=== PATIENT | female | born 1965 | race Caucasian/White ===

== ENCOUNTER 2021-02-22 06:23 | Inpatient (IN) ==
[2021-02-22] MEDS ORDERED: NS 1,000 ML IV 1,000 ML ONE ×2 (06:43→09:32)
[2021-02-22] MEDS ORDERED: ANCEF 1 GRAM IV PREMIX* 2 G/100 ML BAG IV ONE (06:43)
[2021-02-22] MEDS ORDERED: MARCAINE 0.25% INJ ONE (07:01)
[2021-02-22 07:12] VITALS: BMI 44.8
[2021-02-22] MEDS ORDERED: BRIDION ONE (07:20)
[2021-02-22] MEDS ORDERED: FENTANYL VIAL INJ 100 mcg ONE (07:20)
[2021-02-22] MEDS ORDERED: NAROPIN 0.75% EPI ONE (07:21)
[2021-02-22] MEDS ORDERED: ZOFRAN INJ 4 MG VIAL ONE (07:43)
[2021-02-22] MEDS ORDERED: TORADOL 30 MG VIAL ONE (07:43)
[2021-02-22] MEDS ORDERED: NORCURON INJ 10 MG VIAL ONE (07:43)
[2021-02-22] MEDS ORDERED: XYLOCAINE 2 % (PLAIN) ONE (07:43)
[2021-02-22] MEDS ORDERED: DIPRIVAN VIAL ONE (07:43)
[2021-02-22] MEDS ORDERED: QUELICIN (OR ANECTINE) ONE (07:43)
[2021-02-22] MEDS ORDERED: SUPRANE ONE (07:43)
[2021-02-22] MEDS ORDERED: VERSED ONE (07:43)
[2021-02-22] MEDS ORDERED: BARHEMSYS INJ IVP PRN (09:36)
[2021-02-22] MEDS ORDERED: PHENERGAN INJ 25 MG IM PRN (09:36)
[2021-02-22] MEDS ORDERED: DILAUDID INJ IVP PRN (09:36)
[2021-02-22] MEDS ORDERED: ZOFRAN INJ 4 MG VIAL IVP PRN (09:36)
[2021-02-22] MEDS ORDERED: BENADRYL INJ 50 MG VIAL IVP PRN (09:36)
[2021-02-22] MEDS ORDERED: REGLAN INJ 10 MG VIAL IVP PRN (09:36)
[2021-02-22] MEDS ORDERED: TYLENOL 325 MG TAB PO PRN (10:07)
[2021-02-22] MEDS: LR 1,000 ML IV 1,000 ML IV SCH ×2 (11:29→20:26)
[2021-02-22] MEDS: ZOFRAN INJ 4 MG VIAL IVP PRN (11:46)
[2021-02-22] MEDS: LYRICA CAP 150 mg PO SCH ×2 (15:00→21:00)
[2021-02-22] MEDS: FLUVOXAMINE MALEATE PO SCH (15:00)
[2021-02-22] MEDS: DILAUDID INJ IVP PRN ×3 (15:20→23:11)
[2021-02-22] MEDS: SNACK - Diabetic Appropriate PO SCH (20:15)
[2021-02-22] MEDS: REMERON PO SCH (20:29)
[2021-02-22] MEDS: COLACE CAP 100 MG PO SCH (20:29)
[2021-02-22] MEDS: BUSPAR PO SCH (20:29)
[2021-02-22] MEDS: LANTUS SC SCH (21:12)
[2021-02-23] MEDS: PERCOCET TAB 5/325 MG PO PRN ×3 (01:59→22:56)
[2021-02-23] MEDS ORDERED: ZOFRAN INJ 4 MG VIAL ONE (02:57)
[2021-02-23] MEDS: DILAUDID INJ IVP PRN ×5 (03:00→22:04)
[2021-02-23] MEDS: ZOFRAN INJ 4 MG VIAL IVP PRN (03:01)
[2021-02-23] MEDS: LR 1,000 ML IV 1,000 ML IV SCH ×3 (04:59→22:52)
[2021-02-23] MEDS: LYRICA CAP 150 mg PO SCH ×3 (05:06→21:00)
[2021-02-23] MEDS: SYNTHROID 150 mcg TAB PO SCH (05:31)
[2021-02-23 06:37] LABS: BLOOD UREA NITROGEN 11 mg/dL (7-18); CALCIUM 7.8 mg/dL (8.5-10.1); CARBON DIOXIDE 28.2 mmol/L (21-32); CHLORIDE 107 mmol/L (98-107); COR NA(FOR HYPERGLY) 143 mmol/L (136-145); CREATININE 0.94 mg/dL (0.55-1.02); SODIUM 142 mmol/L (136-145); eGFR NON BLACK RACES > 60 (>60)
[2021-02-23] MEDS: BUSPAR PO SCH ×2 (08:09→20:35)
[2021-02-23] MEDS: FLUVOXAMINE MALEATE PO SCH (08:09)
[2021-02-23] MEDS: LOVENOX INJ 40 MG SYR SC SCH (09:13)
--- NOTE | 2021-02-23 10:44 | PCM.PROG ---
Progress Note Progress Note for Day of Date of Exam: 02/23/21 Subjective Subjective: Mrs. Liu is a 55 year old female who is s/p right foot surgery, DOS was 02/22. Patient is doing ok with pain of 8/10. She is currently taking 2 mg of Dilaudid and Oxycodone for pain. Her dressings are c/d/I. No strike through. She denies any f/c/n/v/sob/calf pain. Past Medical Family Social History Past Med/Fam/Surg Hx: No changes since H&P Allergies: Allergies No Known Drug Allergies Allergy (Verified 02/22/21 06:50) Review of Systems ROS: No change since H&P Vital Signs and I&O's Vital Signs: Temperature 98.6 F Pulse Rate [Bilateral Radial] 88 Pulse Rate 83 Respiratory Rate 22 Blood Pressure [Left Arm] 130/66 Blood Pressure 144/65 O2 Sat by Pulse Oximetry 95 Intake and Output: Intake & Output 02/20/21 02/21/21 02/22/21 02/23/21 23:59 23:59 23:59 23:59 Intake Total 3672 / 3672 1519 / 1519 Output Total 520 / 520 Balance 3152 / 3152 1519 / 1519 Physical Exam Oriented: Time, Person and Place Musculoskeletal: Leg (Right leg with the dressing clean, dry and intact. No strike through. Patient is able to move her toes x 5. She has sensation to light touch to all 5 digits. Cap fill is less than 3 seconds. ) Speech Pattern: Clear and Appropriate Laboratory and Diagnostics Result Diagrams: 02/23/21 05:26 02/23/21 05:26 Labs: Laboratory Sodium 142 mmol/L (136-145) 02/23/21 05:26 Corrected Sodium 143 mmol/L (136-145) 02/23/21 05:26 Potassium 4.0 mmol/L (3.5-5.1) 02/23/21 05:26 Chloride 107 mmol/L (98-107) 02/23/21 05:26 Carbon Dioxide 28.2 mmol/L (21-32) 02/23/21 05:26 BUN 11 mg/dL (7-18) 02/23/21 05:26 Creatinine 0.94 mg/dL (0.55-1.02) 12/09/21 05:26 Est GFR (MDRD) Af Amer > 60 (>60) 02/23/21 05:26 Est GFR (MDRD) Non-Af > 60 (>60) 02/23/21 05:26 Glucose 122 mg/dL (65-99) H 02/23/21 05:26 POC Glucose (mg/dL) 101 mg/dL (65-99) H 02/23/21 05:05 Calcium 7.8 mg/dL (8.5-10.1) L 02/23/21 05:26 Plan (1) Right foot pain: Status: Acute Plan: Assessment: Mrs. Lui is s/p right LE reconstructive surgery, DOS was 02/22. Dressing intact with no strike through. Pain is 8/10 and she is taking 2 mg Dilaudid. She is with VSS and NAD. Cr. is 0.94. Plan: She is to continue to elevate right LE x 2 pillows. Keep the dressing intact. First dressing change with be at her first follow up with Dr. Amin in clinic. NWB on the right LE. PT/OT evaluation, appreciate recs. Patient will benefit from rehab. She currently lives in an that has steps and will be very difficult for her. 30 mg of Toradol once for pain. Rx's in the chart. She is to follow up with Dr. Amin in one week Will monitor. Please do not hesitate to contact me with any questions or concerns. Martín Matos, [facility] [phone]
[2021-02-23] MEDS ORDERED: TORADOL 15 MG VIAL IM ONE (10:46)
[2021-02-23] MEDS: SNACK - Diabetic Appropriate PO SCH (20:00)
[2021-02-23] MEDS: COLACE CAP 100 MG PO SCH (20:35)
[2021-02-23] MEDS: RESTORIL CAP 15 MG PO PRN (20:35)
[2021-02-23] MEDS: REMERON PO SCH (20:35)
[2021-02-23] MEDS: LANTUS SC SCH (20:53)
[2021-02-24] MEDS: VISTARIL PO PRN ×3 (00:39→20:46)
[2021-02-24] MEDS: DILAUDID INJ IVP PRN ×5 (00:39→23:46)
[2021-02-24] MEDS: LR 1,000 ML IV 1,000 ML IV SCH ×4 (04:41→21:52)
[2021-02-24] MEDS: LYRICA CAP 150 mg PO SCH ×3 (05:02→21:00)
[2021-02-24] MEDS: SYNTHROID 150 mcg TAB PO SCH (05:32)
[2021-02-24 06:48] LABS: BASOPHILS % (AUTO) 0.7 % (0.2-1.0); EOSINOPHILS # (AUTO) 0.4 x10^3/uL (0.0-0.2); EOSINOPHILS % (AUTO) 5.7 % (0.9-2.9); HEMOGLOBIN 11.6 g/dL (12.0-16.0); LYMPHOCYTES # (AUTO) 1.5 X10^3/uL (1.3-2.9); LYMPHOCYTES % (AUTO) 23.2 % (21.0-51.0); MEAN CORPUSCULAR HEMOGLOBIN 28.1 pg (27.0-34.0); MEAN CORPUSCULAR HGB CONC 33.1 g/dL (33.0-35.0); MONOCYTES # (AUTO) 0.6 x10^3/uL (0.3-0.8); MONOCYTES % (AUTO) 8.8 % (0.0-13.0); NEUTROPHILS # (AUTO) 3.9 x10^3/uL (2.2-4.8); NEUTROPHILS % (AUTO) 61.6 % (42.0-75.0); PLATELET COUNT 208 X10^3/uL (150.0-450.0); RED BLOOD COUNT 4.11 X10^6/uL (3.5-5.4); RED CELL DISTRIBUTION WIDTH 14.3 % (11.6-16.5); WHITE BLOOD COUNT 6.4 X10^3/uL (3.6-10.0)
[2021-02-24] MEDS: BUSPAR PO SCH ×2 (08:09→20:46)
[2021-02-24] MEDS: FLUVOXAMINE MALEATE PO SCH (08:09)
[2021-02-24] MEDS: LOVENOX INJ 40 MG SYR SC SCH (08:11)
[2021-02-24] MEDS ORDERED: PATIENT'S HOME MEDICATION SC SCH (09:00)
[2021-02-24] MEDS: PERCOCET TAB 5/325 MG PO PRN ×2 (12:11→18:04)
--- NOTE | 2021-02-24 16:31 | PCM.PROG ---
Progress Note Progress Note for Day of Date of Exam: 02/24/21 Subjective Subjective: Mrs. Liu is a 55 year old female who is s/p right foot surgery, DOS was 02/22. Patient is doing much better today and the pain is better controlled. She rates the pain at 5/10 today. Her dressings are c/d/I. No strike through. Elevated x 2 pillows. She denies any f/c/n/v/sob/calf pain. Past Medical Family Social History Past Med/Fam/Surg Hx: No changes since H&P Allergies: Allergies No Known Drug Allergies Allergy (Verified 02/22/21 06:50) Review of Systems ROS: No change since H&P Vital Signs and I&O's Vital Signs: Temperature 98.4 F Pulse Rate [Bilateral Radial] 82 Pulse Rate 90 Respiratory Rate 20 Blood Pressure [Right Arm] 126/68 Blood Pressure [Left Arm] 112/59 Blood Pressure 144/65 O2 Sat by Pulse Oximetry 98 Intake and Output: Intake & Output 02/21/21 02/22/21 02/23/21 02/24/21 23:59 23:59 23:59 23:59 Intake Total 3672 / 3672 4646 / 4646 1959 Output Total 520 / 520 0 / 0 0 / 0 Balance 3152 / 3152 4646 / 4646 1959 Physical Exam Oriented: Time, Person and Place Musculoskeletal: Leg (Right leg with the dressing clean, dry and intact. No strike through. Patient is able to move her toes x 5. She has sensation to light touch to all 5 digits. Cap fill is less than 3 seconds. ) Speech Pattern: Clear and Appropriate Laboratory and Diagnostics Result Diagrams: 02/24/21 05:37 02/23/21 05:26 Labs: Laboratory WBC 6.4 X10^3/uL (3.6-10.0) 02/24/21 05:37 RBC 4.11 X10^6/uL (3.5-5.4) 02/24/21 05:37 Hgb 11.6 g/dL (12.0-16.0) L 02/24/21 05:37 Hct 35.0 % (36.0-47.0) L 02/24/21 05:37 MCV 85.0 fL (80.0-100.0) 02/24/21 05:37 MCH 28.1 pg (27.0-34.0) 02/24/21 05:37 MCHC 33.1 g/dL (33.0-35.0) 02/24/21 05:37 RDW 14.3 % (11.6-16.5) 02/24/21 05:37 Plt Count 208 X10^3/uL (150.0-450.0) 02/24/21 05:37 MPV 9.0 fL (7.4-11.0) 02/24/21 05:37 Neut % (Auto) 61.6 % (42.0-75.0) 02/24/21 05:37 Lymph % (Auto) 23.2 % (21.0-51.0) 02/24/21 05:37 [place] % (Auto) 8.8 % (0.0-13.0) 02/24/21 05:37 Eos % (Auto) 5.7 % (0.9-2.9) H 02/24/21 05:37 Baso % (Auto) 0.7 % (0.2-1.0) 02/24/21 05:37 Neut # (Auto) 3.9 x10^3/uL (2.2-4.8) 02/24/21 05:37 Lymph # (Auto) 1.5 X10^3/uL (1.3-2.9) 02/24/21 05:37 [place] # (Auto) 0.6 x10^3/uL (0.3-0.8) 02/24/21 05:37 Eos # (Auto) 0.4 x10^3/uL (0.0-0.2) H 02/24/21 05:37 Baso # (Auto) 0.0 X10^3/uL (0.0-0.1) 02/24/21 05:37 Absolute Nucleated RBC 0.0 /100WBC 02/24/21 05:37 Sodium 142 mmol/L (136-145) 02/23/21 05:26 Corrected Sodium 143 mmol/L (136-145) 02/23/21 05:26 Potassium 4.0 mmol/L (3.5-5.1) 02/23/21 05:26 Chloride 107 mmol/L (98-107) 02/23/21 05:26 Carbon Dioxide 28.2 mmol/L (21-32) 02/23/21 05:26 BUN 11 mg/dL (7-18) 02/23/21 05:26 Creatinine 0.94 mg/dL (0.55-1.02) 02/23/21 05:26 Est GFR (MDRD) Af Amer > 60 (>60) 02/23/21 05:26 Est GFR (MDRD) Non-Af > 60 (>60) 02/23/21 05:26 Glucose 122 mg/dL (65-99) H 02/23/21 05:26 POC Glucose (mg/dL) 89 mg/dL (65-99) 02/24/21 11:19 Calcium 7.8 mg/dL (8.5-10.1) L 02/23/21 05:26 Plan (1) Right foot pain: Status: Acute Plan: Assessment: Mrs. Liu is s/p right LE reconstructive surgery, DOS was 02/22. Dressing intact with no strike through. Right LE is elevated x2 pillows. Pain is better controlled and she rated it at 5/10. She is with VSS and NAD. No leukocytosis. Plan: She is to continue to elevate right LE x 2 pillows. Keep the dressing intact. First dressing change with be at her first follow up with Dr. Amin in clinic. NWB on the right LE. PT/OT evaluation, appreciate recs. Patient will benefit from rehab. Rx's in the chart. She is to follow up with Dr. Amin in one week Will monitor. Please do not hesitate to contact me with any questions or concerns. Martín Matos, [facility] [phone]
[2021-02-24] MEDS: LANTUS SC SCH (19:44)
[2021-02-24] MEDS: SNACK - Diabetic Appropriate PO SCH (19:50)
[2021-02-24] MEDS: REMERON PO SCH (20:46)
[2021-02-24] MEDS: COLACE CAP 100 MG PO SCH (20:46)
[2021-02-24] MEDS: RESTORIL CAP 15 MG PO PRN (23:46)
[2021-02-25] MEDS: PERCOCET TAB 5/325 MG PO PRN ×3 (00:54→23:05)
[2021-02-25] MEDS: LYRICA CAP 150 mg PO SCH ×3 (05:18→23:05)
[2021-02-25] MEDS: DILAUDID INJ IVP PRN ×2 (05:18→18:23)
[2021-02-25] MEDS: LR 1,000 ML IV 1,000 ML IV SCH ×3 (05:18→16:16)
[2021-02-25] MEDS: SYNTHROID 150 mcg TAB PO SCH (05:32)
[2021-02-25] MEDS: VISTARIL PO PRN (09:05)
[2021-02-25] MEDS: LOVENOX INJ 40 MG SYR SC SCH (09:25)
[2021-02-25] MEDS: BUSPAR PO SCH ×2 (09:25→23:02)
[2021-02-25] MEDS: FLUVOXAMINE MALEATE PO SCH (09:25)
[2021-02-25] MEDS ORDERED: ZOFRAN INJ 4 MG VIAL IVP PRN (13:19)
[2021-02-25] MEDS ORDERED: ZOFRAN INJ 4 MG VIAL ONE (13:20)
[2021-02-25] MEDS: MILK OF MAGNESIA PO SCH ×2 (13:37→23:07)
[2021-02-25] MEDS: ZOFRAN INJ 4 MG VIAL IVP PRN (13:38)
--- NOTE | 2021-02-25 17:38 | PCM.PROG ---
Progress Note Progress Note for Day of Date of Exam: 02/25/21 Subjective Subjective: Mrs. Liu is a 55 year old female who is s/p right foot surgery, DOS was 02/22. Patient is doing much better today and the pain is better controlled. She has no new complaints or problems this am. Past Medical Family Social History Past Med/Fam/Surg Hx: No changes since H&P Allergies: Allergies No Known Drug Allergies Allergy (Verified 02/22/21 06:50) Review of Systems ROS: No change since H&P Vital Signs and I&O's Vital Signs: Temperature 98.9 F Pulse Rate [Bilateral Radial] 89 Pulse Rate 90 Respiratory Rate 20 Blood Pressure [Right Arm] 125/77 Blood Pressure [Left Arm] 103/58 Blood Pressure 144/65 O2 Sat by Pulse Oximetry 92 Intake and Output: Intake & Output 02/23/21 02/24/21 02/25/21 02/26/21 11:59 11:59 11:59 11:59 Intake Total 3641 / 3641 3920 / 3920 3808 / 3808 1040 / 1040 Output Total 0 / 0 0 / 0 Balance 3641 / 3641 3920 / 3920 3808 / 3808 1040 / 1040 Physical Exam Oriented: Time, Person and Place Eyes: Normal Nose: Normal Respiratory: Normal Cardiovascular: Normal : Normal Auscultation: Bowel Sounds: Normal Tenderness: Normal Skin: Normal Musculoskeletal: Leg (Right leg with the dressing clean, dry and intact. No strike through. Patient is able to move her toes x 5. She has sensation to light touch to all 5 digits. Cap fill is less than 3 seconds. ) Psychiatric: Normal Mood Description: Calm Affect: Normal Speech Pattern: Clear and Appropriate Laboratory and Diagnostics Result Diagrams: 02/24/21 05:37 02/23/21 05:26 Labs: Laboratory WBC 6.4 X10^3/uL (3.6-10.0) 02/24/21 05:37 RBC 4.11 X10^6/uL (3.5-5.4) 02/24/21 05:37 Hgb 11.6 g/dL (12.0-16.0) L 02/24/21 05:37 Hct 35.0 % (36.0-47.0) L 02/24/21 05:37 MCV 85.0 fL (80.0-100.0) 02/24/21 05:37 MCH 28.1 pg (27.0-34.0) 02/24/21 05:37 MCHC 33.1 g/dL (33.0-35.0) 02/24/21 05:37 RDW 14.3 % (11.6-16.5) 02/24/21 05:37 Plt Count 208 X10^3/uL (150.0-450.0) 02/24/21 05:37 MPV 9.0 fL (7.4-11.0) 02/24/21 05:37 Neut % (Auto) 61.6 % (42.0-75.0) 02/24/21 05:37 Lymph % (Auto) 23.2 % (21.0-51.0) 02/24/21 05:37 [place] % (Auto) 8.8 % (0.0-13.0) 02/24/21 05:37 Eos % (Auto) 5.7 % (0.9-2.9) H 02/24/21 05:37 Baso % (Auto) 0.7 % (0.2-1.0) 02/24/21 05:37 Neut # (Auto) 3.9 x10^3/uL (2.2-4.8) 02/24/21 05:37 Lymph # (Auto) 1.5 X10^3/uL (1.3-2.9) 02/24/21 05:37 [place] # (Auto) 0.6 x10^3/uL (0.3-0.8) 02/24/21 05:37 Eos # (Auto) 0.4 x10^3/uL (0.0-0.2) H 02/24/21 05:37 Baso # (Auto) 0.0 X10^3/uL (0.0-0.1) 02/24/21 05:37 Absolute Nucleated RBC 0.0 /100WBC 02/24/21 05:37 Sodium 142 mmol/L (136-145) 02/23/21 05:26 Corrected Sodium 143 mmol/L (136-145) 02/23/21 05:26 Potassium 4.0 mmol/L (3.5-5.1) 02/23/21 05:26 Chloride 107 mmol/L (98-107) 02/23/21 05:26 Carbon Dioxide 28.2 mmol/L (21-32) 02/23/21 05:26 BUN 11 mg/dL (7-18) 02/23/21 05:26 Creatinine 0.94 mg/dL (0.55-1.02) 02/23/21 05:26 Est GFR (MDRD) Af Amer > 60 (>60) 02/23/21 05:26 Est GFR (MDRD) Non-Af > 60 (>60) 02/23/21 05:26 Glucose 122 mg/dL (65-99) H 02/23/21 05:26 POC Glucose (mg/dL) 95 mg/dL (65-99) 02/25/21 11:14 Calcium 7.8 mg/dL (8.5-10.1) L 02/23/21 05:26 Plan (1) Right foot pain: Status: Acute Narrative Support Text: Improving overall. NO new orders today. Continue current treatment. Plan: Assessment: Mrs. Liu is s/p right LE reconstructive surgery, DOS was 02/22. Dressing intact with no strike through. Right LE is elevated x2 pillows. Pain is better controlled and she rated it at 5/10. She is with VSS and NAD. No leukocytosis. Plan: She is to continue to elevate right LE x 2 pillows. Keep the dressing intact. First dressing change with be at her first follow up with Dr. Amin in clinic. NWB on the right LE. PT/OT evaluation, appreciate recs. Patient will benefit from rehab. Rx's in the chart. She is to follow up with Dr. Amin in one week Will monitor. Please do not hesitate to contact me with any questions or concerns. Martín Matos, [facility] [phone]
[2021-02-25] MEDS: SNACK - Diabetic Appropriate PO SCH (21:24)
[2021-02-25] MEDS: LANTUS SC SCH (21:33)
[2021-02-25] MEDS: COLACE CAP 100 MG PO SCH (23:05)
[2021-02-25] MEDS: REMERON PO SCH (23:06)
[2021-02-26] MEDS: LR 1,000 ML IV 1,000 ML IV SCH ×4 (05:36→21:06)
[2021-02-26] MEDS: LYRICA CAP 150 mg PO SCH ×3 (05:58→21:08)
[2021-02-26] MEDS: SYNTHROID 150 mcg TAB PO SCH (05:58)
[2021-02-26] MEDS: PERCOCET TAB 5/325 MG PO PRN ×2 (05:59→17:28)
[2021-02-26] MEDS: FLUVOXAMINE MALEATE PO SCH (10:00)
[2021-02-26] MEDS: BUSPAR PO SCH ×2 (10:00→21:07)
[2021-02-26] MEDS: MILK OF MAGNESIA PO SCH ×2 (10:00→21:05)
[2021-02-26] MEDS: LOVENOX INJ 40 MG SYR SC SCH (11:14)
[2021-02-26] MEDS: DILAUDID INJ IVP PRN (12:43)
--- NOTE | 2021-02-26 18:53 | PCM.PROG ---
Progress Note Progress Note for Day of Date of Exam: 02/26/21 Subjective Subjective: Mrs. Liu is a 55 year old female who is s/p right foot surgery, DOS was 02/22. Patient is doing much better today and the pain is better controlled. She has no new complaints or problems this am. Past Medical Family Social History Past Med/Fam/Surg Hx: No changes since H&P Allergies: Allergies No Known Drug Allergies Allergy (Verified 02/22/21 06:50) Review of Systems ROS: No change since H&P Vital Signs and I&O's Vital Signs: Temperature 98.1 F Pulse Rate [Bilateral Radial] 84 Pulse Rate 92 Respiratory Rate 16 Blood Pressure [Right Arm] 124/75 Blood Pressure [Left Arm] 103/58 Blood Pressure 144/65 O2 Sat by Pulse Oximetry 92 Intake and Output: Intake & Output 02/24/21 02/25/21 02/26/21 02/27/21 11:59 11:59 11:59 11:59 Intake Total 3920 / 3920 3808 / 3808 3240 / 3240 680 / 680 Output Total 0 / 0 Balance 3920 / 3920 3808 / 3808 3240 / 3240 680 / 680 Physical Exam Oriented: Time, Person and Place Eyes: Normal Nose: Normal Respiratory: Normal Cardiovascular: Normal : Normal Auscultation: Bowel Sounds: Normal Tenderness: Normal Skin: Normal Musculoskeletal: Leg (Right leg with the dressing clean, dry and intact. No strike through. Patient is able to move her toes x 5. She has sensation to light touch to all 5 digits. Cap fill is less than 3 seconds. ) Psychiatric: Normal Mood Description: Calm Affect: Normal Speech Pattern: Clear and Appropriate Laboratory and Diagnostics Result Diagrams: 02/24/21 05:37 02/23/21 05:26 Labs: Laboratory WBC 6.4 X10^3/uL (3.6-10.0) 02/24/21 05:37 RBC 4.11 X10^6/uL (3.5-5.4) 02/24/21 05:37 Hgb 11.6 g/dL (12.0-16.0) L 02/24/21 05:37 Hct 35.0 % (36.0-47.0) L 02/24/21 05:37 MCV 85.0 fL (80.0-100.0) 02/24/21 05:37 MCH 28.1 pg (27.0-34.0) 02/24/21 05:37 MCHC 33.1 g/dL (33.0-35.0) 02/24/21 05:37 RDW 14.3 % (11.6-16.5) 02/24/21 05:37 Plt Count 208 X10^3/uL (150.0-450.0) 02/24/21 05:37 MPV 9.0 fL (7.4-11.0) 02/24/21 05:37 Neut % (Auto) 61.6 % (42.0-75.0) 02/24/21 05:37 Lymph % (Auto) 23.2 % (21.0-51.0) 02/24/21 05:37 [place] % (Auto) 8.8 % (0.0-13.0) 02/24/21 05:37 Eos % (Auto) 5.7 % (0.9-2.9) H 02/24/21 05:37 Baso % (Auto) 0.7 % (0.2-1.0) 02/24/21 05:37 Neut # (Auto) 3.9 x10^3/uL (2.2-4.8) 02/24/21 05:37 Lymph # (Auto) 1.5 X10^3/uL (1.3-2.9) 02/24/21 05:37 [place] # (Auto) 0.6 x10^3/uL (0.3-0.8) 02/24/21 05:37 Eos # (Auto) 0.4 x10^3/uL (0.0-0.2) H 02/24/21 05:37 Baso # (Auto) 0.0 X10^3/uL (0.0-0.1) 02/24/21 05:37 Absolute Nucleated RBC 0.0 /100WBC 02/24/21 05:37 Sodium 142 mmol/L (136-145) 02/23/21 05:26 Corrected Sodium 143 mmol/L (136-145) 02/23/21 05:26 Potassium 4.0 mmol/L (3.5-5.1) 02/23/21 05:26 Chloride 107 mmol/L (98-107) 02/23/21 05:26 Carbon Dioxide 28.2 mmol/L (21-32) 02/23/21 05:26 BUN 11 mg/dL (7-18) 02/23/21 05:26 Creatinine 0.94 mg/dL (0.55-1.02) 02/23/21 05:26 Est GFR (MDRD) Af Amer > 60 (>60) 02/23/21 05:26 Est GFR (MDRD) Non-Af > 60 (>60) 02/23/21 05:26 Glucose 122 mg/dL (65-99) H 02/23/21 05:26 POC Glucose (mg/dL) 105 mg/dL (65-99) H 02/26/21 17:15 Calcium 7.8 mg/dL (8.5-10.1) L 02/23/21 05:26 Plan (1) Right foot pain: Status: Acute Narrative Support Text: Stable overall. No changes to treatment. Plan: Assessment: Mrs. Liu is s/p right LE reconstructive surgery, DOS was 02/22. Dressing intact with no strike through. Right LE is elevated x2 pillows. Pain is better controlled and she rated it at 5/10. She is with VSS and NAD. No leukocytosis. Plan: She is to continue to elevate right LE x 2 pillows. Keep the dressing intact. First dressing change with be at her first follow up with Dr. Amin in clinic. NWB on the right LE. PT/OT evaluation, appreciate recs. Patient will benefit from rehab. Rx's in the chart. She is to follow up with Dr. Amin in one week Will monitor. Please do not hesitate to contact me with any questions or concerns. Martín Matos, [facility] [phone]
[2021-02-26] MEDS: SNACK - Diabetic Appropriate PO SCH (21:05)
[2021-02-26] MEDS: COLACE CAP 100 MG PO SCH (21:06)
[2021-02-26] MEDS: REMERON PO SCH (21:07)
[2021-02-26] MEDS: LANTUS SC SCH (22:59)
[2021-02-27] MEDS: PERCOCET TAB 5/325 MG PO PRN (00:02)
[2021-02-27] MEDS: LR 1,000 ML IV 1,000 ML IV SCH ×3 (01:41→12:14)
[2021-02-27] MEDS: SYNTHROID 150 mcg TAB PO SCH (05:33)
[2021-02-27] MEDS: LYRICA CAP 150 mg PO SCH (05:33)
[2021-02-27] MEDS: MILK OF MAGNESIA PO SCH (10:00)
[2021-02-27] MEDS: FLUVOXAMINE MALEATE PO SCH (10:00)
[2021-02-27] MEDS: BUSPAR PO SCH (10:00)
[2021-02-27] MEDS: LOVENOX INJ 40 MG SYR SC SCH (10:14)
[2021-02-27 11:17] VITALS: BP 138/77
== END 2021-02-27 12:20 | disposition short-term general hospital (02) | DRG 494 ==
LOC: MED/SURG 06:23 → EDUNIT# 07:30
PROVIDERS: ADMIT Podiatrist; ATTEND Obstetrics & Gynecology Obstetrics
PROC: DEBRIDE (2021-02-22 07:45)
PROC: ACHTENR (ICD-10-PCS; 2021-02-22 07:45)
PROC: GASTREC (ICD-10-PCS; 2021-02-22 07:45)
DX: M21.071 Valgus deformity, not elsewhere classified, right ankle; M76.821 Posterior tibial tendinitis, right leg; M79.671 Pain in right foot; M21.6X1 Other acquired deformities of right foot; R26.89 Other abnormalities of gait and mobility